=== PATIENT | female | born 1950 | race American Indian/Alaskan Native ===

== ENCOUNTER 2022-03-04 10:35 | Emergency (ER) | payer MEDICARE ==
[2022-03-04 11:27] VITALS: BP 168/73
--- NOTE | 2022-03-04 14:56 | Emergency Department Report ---
ED General Adult HPI - General Chief complaint: Nausea/Vomiting/Diarrhea Stated complaint: REDISH EYE/NAUSEA Time Seen by Provider: 03/04/22 14:20 Source: patient Mode of arrival: Ambulatory Limitations: No Limitations - History of Present Illness Initial comments: 71-year-old black female with a past medical history of depression presents to the emergency department for evaluation of intermittent eye redness and drainage along with intermittent anxiety. She states that for the past several months, 5-6, she has had thinning of her eyebrows and eyelashes that she feels is related to the environment in her apartment. She states that she was told that the person that lived in her apartment prior to her had a lot of animals and now she has intermittent itching, she wakes up in the morning with dried white crust to her eyes, intermittent runny nose, and all of this together makes her have anxiety. She states that sometimes she feels like there is something crawling on her body but she has never seen any bugs or had any bites. She states that she wants to find out what is causing her eyebrows to thin and why she has intermittent symptoms. She states that she is worried that she may have mold or some type of other infestation in her apartment, so she has been unable to sleep well. She states that when she is at home, her eyes itch and drain clear fluid. She states that she tries to leave home as often as possible but because of her age and no transportation, she gets tired doing that all of the time. She states that she has not taken any medications for her symptoms and has not seen her primary care provider in many years. She denies SI and HI. Complaint: Redness and itching of bilateral eyes, intermittent itching -: Gradual, month(s) (5-6) Severity scale (0 -10): 0 Associated Symptoms: denies: chest pain, cough, diaphoresis, fever/chills, headaches, loss of appetite, malaise, nausea/vomiting, rash, shortness of breath, syncope, weakness Treatments Prior to Arrival: none - Related Data Previous Rx's Medication Instructions Recorded Last Taken Type Cetirizine HCl [ZyrTEC 10mg cap] 10 mg PO DAILY #30 cap 03/04/22 Unknown Rx hydrOXYzine PAMOATE [Vistaril] 25 mg PO Q6HR PRN #30 capsule 03/04/22 Unknown Rx ED Review of Systems ROS: Stated complaint: REDISH EYE/NAUSEA Other details as noted in HPI Comment: All other systems reviewed and negative Constitutional: denies: chills, diaphoresis, fever, malaise, weakness Eyes: eye discharge. denies: vision change ENT: denies: ear pain, congestion Respiratory: denies: cough, orthopnea, shortness of breath, SOB with exertion, SOB at rest, stridor, wheezing Cardiovascular: denies: chest pain, palpitations, dyspnea on exertion, orthopnea, edema, syncope, paroxysmal nocturnal dyspnea Gastrointestinal: denies: abdominal pain, nausea, vomiting Genitourinary: denies: urgency, dysuria Musculoskeletal: denies: back pain Skin: pruritus. denies: rash, lesions Neurological: denies: headache, weakness, numbness, paresthesias Psychiatric: denies: anxiety ED Past Medical Hx - Social History Smoking Status: Never Smoker - Medications Home Medications: Home Medications Medication Instructions Recorded Confirmed Last Taken Type Cetirizine HCl [ZyrTEC 10mg cap] 10 mg PO DAILY #30 cap 03/04/22 Unknown Rx hydrOXYzine PAMOATE [Vistaril] 25 mg PO Q6HR PRN #30 capsule 03/04/22 Unknown Rx ED Physical Exam - General Limitations: No Limitations General appearance: alert, in no apparent distress - Head Head exam: Present: atraumatic, normocephalic - Eye Eye exam: Present: normal appearance. Absent: scleral icterus, conjunctival injection, periorbital swelling, periorbital tenderness - Expanded Eye Exam Expanded Eyelids: Normal Inspection: Right Pupils: Regular, Round: Bilateral, Reactive: Bilateral Sclera/Conjunctival: Normal Inspection: Bilateral - ENT ENT exam: Absent: normal exam (Bilateral nasal mucosal edema), normal orophraynx (Erythema noted to posterior oropharynx) - Neck Neck exam: Present: normal inspection. Absent: tenderness, lymphadenopathy - Respiratory Respiratory exam: Present: normal lung sounds bilaterally. Absent: respiratory distress, wheezes, rales, rhonchi, stridor, chest wall tenderness - Cardiovascular Cardiovascular Exam: Present: regular rate, normal heart sounds - GI/Abdominal GI/Abdominal exam: Present: soft, normal bowel sounds. Absent: distended, tenderness, guarding, rebound, rigid - Extremities Exam Extremities exam: Present: normal inspection, normal capillary refill. Absent: pedal edema, joint swelling, calf tenderness - Back Exam Back exam: Present: normal inspection. Absent: CVA tenderness (R), CVA tenderness (L) - Neurological Exam Neurological exam: Present: alert, oriented X3 - Psychiatric Psychiatric exam: Present: normal affect, normal mood - Skin Skin exam: Present: warm, dry, intact, normal color ED Course Vital Signs 03/04/22 11:21 Temperature 97.9 F Pulse Rate 70 Respiratory 16 Rate Blood Pressure 168/73 O2 Sat by Pulse 96 Oximetry ED Medical Decision Making - Medical Decision Making 71-year-old black female with a past medical history of depression presents to the emergency department for evaluation of intermittent eye redness and drainage along with intermittent anxiety. She states that for the past several months, 5-6, she has had thinning of her eyebrows and eyelashes that she feels is related to the environment in her apartment. She states that she was told that the person that lived in her apartment prior to her had a lot of animals and now she has intermittent itching, she wakes up in the morning with dried white crust to her eyes, intermittent runny nose, and all of this together makes her have anxiety. She states that sometimes she feels like there is something crawling on her body but she has never seen any bugs or had any bites. She states that she wants to find out what is causing her eyebrows to thin and why she has intermittent symptoms. She states that she is worried that she may have mold or some type of other infestation in her apartment, so she has been unable to sleep well. She states that when she is at home, her eyes itch and drain clear fluid. She states that she tries to leave home as often as possible but because of her age and no transportation, she gets tired doing that all of the time. She states that she has not taken any medications for her symptoms and has not seen her primary care provider in many years. She denies SI and HI. Physical exam unremarkable. Patient advised that some symptoms could be related to allergies and was advised to start Zyrtec 10 mg twice daily. She was given prescription for Vistaril to use as needed for anxiety and itching. She was advised to follow-up with her primary care provider first for 4 physical exam and for further management of problems. She was advised to notify toxicology clinic at [facility] to be advised tests and procedures to check for mold exposure. She was advised to return to the emergency department as needed. She verbalizes understanding of and agreement with plan of care. Critical care attestation.: If time is entered above; I have spent that time in minutes in the direct care of this critically ill patient, excluding procedure time. ED Disposition Clinical Impression: Anxiety Allergies Qualifiers: Encounter type: initial encounter Qualified Code(s): T78.40XA - Allergy, uns pecified, initial encounter Disposition: HOME / SELF CARE / HOMELESS Is pt being admited?: No Does the pt Need Aspirin: No Condition: Stable Instructions: Allergies, Adult, [id number], Managing Anxiety, Adult Additional Instructions: Take medications as prescribed. Follow-up with primary care provider for further evaluation and management. Return to the emergency department as needed. Prescriptions: hydrOXYzine PAMOATE [Vistaril] 25 mg PO Q6HR PRN #30 capsule PRN Reason: Anxiety Cetirizine HCl [ZyrTEC 10mg cap] 10 mg PO DAILY #30 cap Referrals: SANA ROLON MD [Staff Physician] - 3-5 Days Time of Disposition: 14:56
== END 2022-03-04 15:34 | disposition home or self-care (01) ==
LOC: ED 10:35
DX: F41.9 Anxiety disorder, unspecified (principal); T78.40XA Allergy, unspecified, initial encounter; X58.XXXA Exposure to other specified factors, initial encounter
CPT/HCPCS: 99282